=== PATIENT | male | born 1960 | race Caucasian/White ===

== ENCOUNTER → 2020-11-20 | Outpatient (REF) | payer OTHER ==
[2020-11-20 13:31] LABS: MAGNESIUM LEVEL 2.2 MG/DL (1.8-2.4)
[2020-11-20 13:37] LABS: TOTAL 25(OH) VITAMIN D 18.2 NG/ML (30.0-100.0)
== END ==
LOC: M SFHCRHEU 10:20
PROVIDERS: ATTEND Internal Medicine
DX: R53.82 Chronic fatigue, unspecified (principal)

== ENCOUNTER → 2020-12-25 | Outpatient (CLI) | payer BC, OTHER ==
--- NOTE | 2020-12-27 15:58 | SLEEPHOME ---
DATE: 12/25/2020 ORDERED BY: Dr. Heidi Kumar, Rheumatology Diagnostic home sleep testing was performed due to concern for the obstructive sleep apnea syndrome in this patient with a history of chronic fatigue. For testing, a nocturnal T3 respiratory monitoring device was used. Continuous record was made of pulse, oxygen saturation, air flow, chest and abdominal strain, and body position. There was 9 hours and 59 minutes of data reviewed. There was 7 hours and 21 minutes marked as time in bed. During the interval marked time in bed, there were 73 respiratory event index of 10 seconds in duration or greater for a respiratory event index of 9.9. The events were primarily obstructive. Baseline pulse rate was 60. Pulse rate ranged 41-100. Baseline saturation 92%. Saturations fell to 82%, and testing was performed in both the supine and nonsupine positions. IMPRESSION: Abnormal home sleep testing with repetitive respiratory events and oxygen desaturations to 82% with a respiratory event index of 9.9 is consistent with the obstructive sleep apnea syndrome. RECOMMENDATION: The patient should be encouraged to undergo formal sleep evaluation.
== END ==
LOC: M SLEEP HO 11:14
PROVIDERS: ATTEND Internal Medicine
DX: R53.82 Chronic fatigue, unspecified (principal)

== ENCOUNTER → 2021-03-29 | Outpatient (REF) | payer OTHER | LOC: M SFHCRHEU 10:59 | PROVIDERS: ATTEND Internal Medicine | DX: E55.9 Vitamin D deficiency, unspecified (principal) ==

== ENCOUNTER → 2021-05-07 | Outpatient (CLI) | payer BC, OTHER ==
--- NOTE | 2021-05-08 15:48 | SLEEPCENT ---
DATE: 05/07/2021 ORDERED BY: Peterson Patel Nocturnal polysomnography was performed for the titration of pressure therapy in this patient with a clinical diagnosis of obstructive sleep apnea syndrome supported by home testing, reviewing a respiratory event index of 9.9. For testing, a ResMed Quattro full-face mask of large size was used. There was 4 cm of water pressure applied to the circuit, and the lights were extinguished. There was 7 hours and 53 minutes of data reviewed. There was 362.5 minutes of sleep identified. Sleep latency was normal at 14 minutes. REM latency was normal at 80 minutes. Sleep architecture was good with five REM cycles. Overall sleep efficiency 77.7%. The electrocardiogram showed a sinus rhythm with PACs. Average heart rate 55 beats per minute. EEG showed normal waveforms for wake and sleep. Respiratory events were fully palliated with CPAP at a pressure of +7. There was some limb activity, particularly early in the study. Limb movement arousal index, however, was only 3.3. IMPRESSION: Obstructive sleep apnea syndrome (G47.33). RECOMMENDATION: Nightly use of pressure therapy, 7 cm of water.
== END ==
LOC: M SLEEP 20:00
PROVIDERS: ATTEND Physician Assistant
DX: G47.33 Obstructive sleep apnea (adult) (pediatric) (principal)